=== PATIENT | female | born 1955 | race Two or more races ===

== ENCOUNTER 2022-05-10 12:18 | Emergency (ER) | payer OTHER, MEDICAID ==
[~2022-05-10] VITALS: Ht 172.7 cm; Wt 95.0 kg
[2022-05-10 12:53] LABS: BASOPHILS % 1.2 % (0.0-2.0); HEMATOCRIT. 43.4 % (36.0-48.0); HEMOGLOBIN. 14.1 g/dL (12.0-16.0); LYMPHOCYTES % 31.2 % (20.0-50.0); MEAN CORPUSCULAR HEMOGLOBIN 29.2 pg (28.0-32.0); MEAN CORPUSCULAR VOLUME 90.1 fL (81.0-99.0); MEAN PLATELET VOLUME 9.2 fl (7.4-10.4); MONOCYTES % 10.5 % (2.0-8.0); NEUTROPHILS % 55.1 % (40.0-76.0); PLATELET 265 x1000/uL (130-400); RED BLOOD CELL COUNT 4.82 mill/uL (4.2-5.4); RED CELL DISTRIBUTION WIDTH 16.3 % (11.6-14.6)
[2022-05-10 13:02] LABS: CHLORIDE 102 mEq/L (98-107)
[2022-05-10 19:30] VITALS: BP 125/91
== END 2022-05-10 20:31 | disposition left against medical advice (07) ==
LOC: ER 13:33
DX: G93.9 Disorder of brain, unspecified (principal); R90.0 Intracranial space-occupying lesion found on diagnostic imaging of central nervous system; I50.9 Heart failure, unspecified
CPT/HCPCS: 36415; 71045; 80053; 83605; 83880; 84484; 85025; 93005; 99285